=== PATIENT | male | born 1975 | race Two or more races ===

== ENCOUNTER 2019-09-13 11:10 | Emergency (ER) | payer MEDICAID ==
[~2019-09-13] VITALS: Ht 162.6 cm; Wt 61.2 kg
--- NOTE | 2019-09-13 11:22 | NUR ---
PT CAME INTO THE ED C/O R ANKLE PAIN 03/30 X 1 WEEK. PT AAOX4, VSS, BREATHING EVEN AND UNLABORED W/ AND NOTED. -FALL. PT CONNECTED TO THE MONITOR AND POX.
[2019-09-13] MEDS ORDERED: IBUPROFEN 600 MG TABLET PO ONE ×2 (11:27→11:30)
--- NOTE | 2019-09-13 12:06 | NUR ---
Social service consult requested by SIMRAN Rod for homelessness. Pt. is a 44 year old male who came to [facility] complaining of an injured ankle. EDWIN met with the pt. bedside. Pt. is alert and oriented x 4. Pt. is cooperative and pleasant with SW during the assessment. Pt. states, he has been homeless for the past 4 months. Prior to being homeless, pt. was residing with a friend in [place]. Pt. is interested in going to the [facility]. Pt. 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 Pt. denies any current drug or alcohol use. Pt. states he has been feeling paranoid lately. However, pt. currently denies any visual/auditory hallucinations and visual/auditory hallucinations at this time. SW encouraged pt. to see a psychiatrist regarding his paranoia. EDWIN provided pt. the [id number] [facility] program list, [facility] located at [address] [facility] ; [facility], [address] [place] [address], L. A [place] ; [facility] [place], [address] [facility] ; [facility] Homeless Resource Directory which includes food stamps, transitional housing, showers and hot meals etc; Mental Health clinics such as [facility] ; [facility] ; Health clinics;[facility] and Alcohol treatment centers such as [facility], ; [facility] Substance Abuse Hotline and [facility] . Pt. will be provided with lunch and a tap card prior to discharge. EDWIN updated pt's RN regarding pt's discharge plan. Homeless patient waiver form was signed by the pt. and placed in pt's chart.
--- NOTE | 2019-09-13 12:29 | NUR ---
Patient given written and verbal discharge instructions. Patient verbalizes understanding of instructions. Patient is ambulatory with steady gait. Refuses offer of [facility] placement. Patient given list of available shelters in surrounding area. Taxi Voucher and food provided.
[2019-09-13 12:30] VITALS: BP 122/84
== END 2019-09-13 12:31 | disposition home or self-care (01) ==
LOC: ER 11:10
DX: M25.571 Pain in right ankle and joints of right foot (principal); R05 Cough; R56.9 Unspecified convulsions; F17.200 Nicotine dependence, unspecified, uncomplicated; Z60.2 Problems related to living alone; Z59.0 Homelessness
CPT/HCPCS: 71045-TC; 73610-TC